=== PATIENT | female | born 1970 | race Two or more races ===

== ENCOUNTER → 2024-06-12 | Outpatient (CLI) | payer MEDICAID, SELFPAY ==
--- NOTE | 2024-06-12 10:30 | XR_ITS ---
Examination: MRI lumbar spine without contrast Date and time of exam: June 12, 2024 1104 hours INDICATIONS: Onset lower back pain radiating to the left leg numbness in the left foot 9 months after fall Technique: Multiple MRI axial and sagittal sections lumbar spine. Sagittal T2-weighted images, TR 3500, TE 118 T1 weighted transverse sections, TR 688 T8.5, T2-weighted sagittal sections T1 weighted sagittal sections TR 621, TE 30 T2 axial sections, TR 4, 190, TE 84. Findings: Grade 1 anterolisthesis L4 on L5 No lumbar fracture Adequate marrow signal lumbar vertebral bodies Diffuse lumbar disc desiccation Mild to moderate lumbar disc narrowing most prominent L4-L5, L5-S1 L5-S1 5 mm central lumbar disc bulge contiguous with the right and left S1 nerve roots L4-L5 partially extruded 9 mm central lumbar disc bulge severely indenting the thecal sac and displacing the right and left L5 nerve roots L4-L5 2 mm central lumbar disc bulge IMPRESSION: L5-S1 5 mm central lumbar disc bulge contiguous with the right and left S1 nerve roots L4-L5 partially extruded 9 mm central lumbar disc bulge indenting the thecal sac and displacing the right and left L5 nerve roots
== END | disposition home or self-care (01) ==
LOC: SMRI 09:57
PROVIDERS: PCP Physician Assistant; Referring Provider Physician Assistant; Visit Provider Physician Assistant
DX: M51.369 Other intervertebral disc degeneration, lumbar region without mention of lumbar back pain or lower extremity pain (principal); M51.379 Other intervertebral disc degeneration, lumbosacral region without mention of lumbar back pain or lower extremity pain; M51.26 Other intervertebral disc displacement, lumbar region
CPT/HCPCS: 72148

== ENCOUNTER → 2025-02-27 | Outpatient (CLI) | payer MEDICAID, SELFPAY ==
--- NOTE | 2025-02-27 13:15 | XR_ITS ---
Examination: Screening digital mammography, bilateral Computer aided detection 3-D breast Tomosynthesis, bilateral Date and time of exam: 02/27/2015, 1255 pm, dating to exams of 09/25/2016 Indication: Screening Technique: Nonmagnified MLO, CC views of the breasts to been obtained, reconstructed from 3-D Tomosynthesis images. R2 computer aided detection program utilized for evaluation of suspicious masses and/or abnormal calcifications. 3-D Tomosynthesis images obtained. Findings: Scattered areas of fibronodular density. Stable scar formation inner left breast. No interval suspicious masses Impression: BI-RADS category II: Benign Findings. Recommend 1 year follow-up mammogram.
== END | disposition home or self-care (01) ==
LOC: CDIM 12:49
PROVIDERS: Referring Provider Specialist; Visit Provider Specialist
DX: Z12.31 Encounter for screening mammogram for malignant neoplasm of breast (principal); R92.323 Mammographic fibroglandular density, bilateral breasts
CPT/HCPCS: 77063; 77067